=== PATIENT | male | born 1975 | race African-American/Black ===

== ENCOUNTER 2019-07-05 05:55 | Emergency (ER) | payer MEDICAID ==
[~2019-07-05] VITALS: Ht 167.6 cm; Wt 60.0 kg
[2019-07-05 09:24] VITALS: BP 129/90
== END 2019-07-05 10:06 | disposition home or self-care (01) ==
LOC: ED 06:46
DX: K29.20 Alcoholic gastritis without bleeding (principal); Y90.0 Blood alcohol level of less than 20 mg/100 ml; F10.29 Alcohol dependence with unspecified alcohol-induced disorder; I10 Essential (primary) hypertension; D72.819 Decreased white blood cell count, unspecified; F41.1 Generalized anxiety disorder; F32.9 Major depressive disorder, single episode, unspecified
CPT/HCPCS: 36415; 70450; 80053; 83690; 85025; 96374; 96375; 99284; J2405; J2765; J3490; Q0169

== ENCOUNTER 2020-08-12 06:41 | Emergency (ER) | payer MEDICAID ==
[~2020-08-12] VITALS: Ht 167.6 cm; Wt 70.0 kg
[~2020-08-12 06:41] MED LIST: ALPR0.5T7 PO; AMIT100T PO; AMLO10TA8 PO; LORA-446 PO; PHEN100C PO; PHEN30CA PO; TRAZ50TA66 PO
[2020-08-12] MEDS ORDERED: METOCLOPRAMIDE 5 MG/ML, 2ML ONE (07:16)
[2020-08-12] MEDS ORDERED: PANTOPRAZOLE 40 MG IV ONE (07:16)
[2020-08-12] MEDS ORDERED: PLEASE ENTER HEIGHT AND WEIGHT MC SCH (07:30)
[2020-08-12] MEDS ORDERED: METOCLOPRAMIDE 5 MG/ML, 2ML IVPush ONE (07:30)
[2020-08-12] MEDS ORDERED: SODIUM CHLORIDE 0.9% 1,000ML IVBOLUS ONE (07:30)
[2020-08-12] MEDS ORDERED: ONDANSETRON 2MG/ML, 2ML IVPush ONE (07:30)
[2020-08-12] MEDS ORDERED: PANTOPRAZOLE 40 MG IV IVPush ONE (07:30)
--- NOTE | 2020-08-12 07:30 | NUR ---
THIS IS A 44 YO MALE PT BIB [facility] C/O N/V/D AND DIFFUSE ABD PAIN X A FEW DAYS. PT REPORTS DRINKING MORE THAN NORMAL - FROM 1-2 BEERS/DAY TO 6-10 ALONG WITH SHOTS. PT DENIES COUGH, SORE THROAT OR FEVERS. PT AO X 4. SKIN COOL AND DRY. PT SLIGHTLY TENDER TO PALP OVER ENTIRE ABDOMEN. PT AWARE WE NEED URINE SAMPLE AND VERBALIZES UNDERSTANDING OF HOW TO PROVIDE SAMPLE, STATES "I CAN'T GO RIGHT NOW, MAYBE AFTER SOME FLUID." IVF STARTED. PT MEDICATED ORDERED FOR NAUSEA. PT ON CONT BP AND SPO2 MONITORS. CALL LIGHT WITHIN REACH. WILL CONT TO MONITOR PT.
--- NOTE | 2020-08-12 07:32 | NUR ---
REPORT FROM LEBRON SCHMITZ.
--- NOTE | 2020-08-12 07:32 | NUR ---
BEDSIDE REPORT TO AINSLEY ALCOCER WHO ASSUMED CARE OF PT.
[2020-08-12 08:02] LABS: BASOPHILS # (AUTO) 0.01 x10^3/uL (0-0.1); BASOPHILS % (AUTO) 0 % (0-1); EOSINOPHILS % (AUTO) 0 % (1-7); LYMPHOCYTES # (AUTO) 0.75 x10^3/uL (1-3.4); LYMPHOCYTES % (AUTO) 19 % (22-44); MD NO; MEAN CORPUSCULAR HEMOGLOBIN 29.1 pg (27.5-34.5); MEAN CORPUSCULAR HGB CONC 32.6 g/dL (33.2-36.2); MEAN CORPUSCULAR VOLUME 89.2 fL (81-97); MEAN PLATELET VOLUME 9.2 fL (7.4-10.4); MONOCYTES # (AUTO) 0.19 x10^3/uL (0.2-0.8); MONOCYTES % (AUTO) 5 % (2-9); NEUTROPHILS # (AUTO) 2.97 x10^3/uL (1.8-6.8); NEUTROPHILS % (AUTO) 76 % (42-75); PLATELET COUNT 127 x10^3/uL (130-400); RED CELL DISTRIBUTION WIDTH 14.9 % (9.4-14.8)
[2020-08-12 08:08] LABS: ALBUMIN 4.2 g/dL (3.4-5.0); ANION GAP 12 mmol/L (5-15); CALCIUM 9.3 mg/dL (8.5-10.1); CHLORIDE 105 mmol/L (98-107)
[2020-08-12 08:13] LABS: ALANINE AMINOTRANSFERASE 100 U/L (12-78); ALKALINE PHOSPHATASE 65 U/L (45-117); CREATININE 1.11 mg/dL (0.7-1.3); TOTAL PROTEIN 8.6 g/dL (6.4-8.2)
--- NOTE | 2020-08-12 09:00 | NUR ---
RECEIVED REPORT FROM LEODAN. PT UPRIGHT ON GURNEY AWAKE & COMFORTABLE, RESPONDS APPROP TO STAFF, NAD, COMFORT MEASURES PROVIDED, AWAITING UA SAMPLE, CALL LIGHT WITHIN REACH.
--- NOTE | 2020-08-12 09:04 | NUR ---
report to jaiden ariza. as
[2020-08-12] MEDS ORDERED: OMNIPAQUE 350 MG/ML, 100ML BOTTLE ONE (09:31)
[2020-08-12 09:36] VITALS: BP 149/96
[2020-08-12 09:50] LABS: MICROSCOPIC AUTO
--- NOTE | 2020-08-12 10:17 | NUR ---
Patient given discharge instructions and Rx, they have confirmed that they understand the instructions. Patient ambulatory with steady gait.
== END 2020-08-12 10:30 | disposition home or self-care (01) ==
LOC: ED 10:14
DX: K40.90 Unilateral inguinal hernia, without obstruction or gangrene, not specified as recurrent (principal); K29.21 Alcoholic gastritis with bleeding; R11.2 Nausea with vomiting, unspecified; R10.9 Unspecified abdominal pain; I10 Essential (primary) hypertension
CPT/HCPCS: 36415; 74177; 80053; 81001; 83690; 85025; 87086; 96361; 96374; 96375; 99285; C9113; J2765; J7030; Q9967